=== PATIENT | female | born 1990 | race Caucasian/White ===

== ENCOUNTER 2017-04-08 05:00 | Observation (INO) | payer BC | END 2017-04-08 06:40 | disposition home or self-care (01) | LOC: SPU 05:00 | PROVIDERS: ADMIT Obstetrics & Gynecology; ATTEND Obstetrics & Gynecology | DX: O62.9 Abnormality of forces of labor, unspecified (principal); Z3A.39 39 weeks gestation of pregnancy | CPT/HCPCS: 81002; G0378 ==

== ENCOUNTER 2017-04-09 00:33 | Inpatient (IN) | payer BC ==
[~2017-04-09] VITALS: Ht 165.1 cm; Wt 78.5 kg
[2017-04-09] MEDS ORDERED: LR 1,000 ML IV ONE (01:59)
[2017-04-09] MEDS ORDERED: LR 1,000 ML IV SCH (01:59)
[2017-04-09] MEDS ORDERED: TERBUTALINE SULFATE 1 MG/ML VIAL SUBCUT ONE (02:00)
[2017-04-09] MEDS ORDERED: NALBUPHINE HCL 10 MG/ML AMP IVP PRN (02:00)
[2017-04-09 02:41] LABS: BASOPHILS % (AUTO) 0.3 % (0.0-2.0); EOSINOPHILS # (AUTO) 0.1 K/uL (0.0-0.4); EOSINOPHILS % (AUTO) 0.7 % (0.0-4.0); HEMATOCRIT 38.6 % (36-48); HEMOGLOBIN 13.3 g/dL (12.0-16.0); LYMPHOCYTES % (AUTO) 16.5 % (20.5-51.5); MEAN CORPUSCULAR HEMOGLOBIN 32 pg (27-31); MEAN CORPUSCULAR HGB CONC 34 % (32-36); MEAN CORPUSCULAR VOLUME 93 fL (79.0-98.0); MONOCYTES # (AUTO) 0.9 K/uL (0.0-1.0); MONOCYTES % (AUTO) 7.6 % (1.7-9.3); NEUTROPHILS # (AUTO) 9.3 K/uL (1.8-7.7); NEUTROPHILS % (AUTO) 74.9 % (40.0-70.0); PLATELET COUNT (AUTO) 166 K/uL (130-430); RED BLOOD CELL COUNT(AUTO) 4.17 MIL/uL (4.2-6.2); WHITE BLOOD COUNT (AUTO) 12.3 K/uL (4.8-10.8)
[2017-04-09 04:12] VITALS: BP_SYST 130
[2017-04-09] MEDS ORDERED: OXYTOCIN/NORMAL SALINE 1,000 ML IV SCH ×2 (06:43→19:00)
[2017-04-09] MEDS ORDERED: FENT2mCg/mL-ROPIVA0.2%/NS EPID 150 ML EP ONE (09:44)
[2017-04-09] MEDS ORDERED: LR 500 ML IV ONE (10:58)
[2017-04-09] MEDS ORDERED: FENT2mCg/mL-ROPIVA0.2%/NS EPID 150 ML EP SCH (11:00)
[2017-04-09] MEDS ORDERED: ePHEDrine sulfate 50 MG/ML VIAL IVP PRN (11:00)
[2017-04-09] MEDS ORDERED: LIDOCAINE 2%, 20 ML MDV INJ ONE (15:00)
[2017-04-09] MEDS ORDERED: ACETAMINOPHEN 325 MG TABLET PO PRN (19:00)
[2017-04-09] MEDS ORDERED: GLYCERIN/WITCH HAZEL (TUCKS PADS) TP PRN (19:00)
[2017-04-09] MEDS ORDERED: METHYLERGONOVINE MALEATE 0.2 MG TABLET PO PRN (19:00)
[2017-04-09] MEDS ORDERED: LANOLIN 7 GM OINT. TP PRN (19:00)
[2017-04-09] MEDS ORDERED: HYDROCORTISONE 0.5%, 28.35 GM TOPICAL CREAM TP PRN (19:00)
[2017-04-09] MEDS ORDERED: RHO(D) IMMUNE GLOBULIN/MALTOSE 1500 UNITS/1.3 ML (WINHRO) IM PRN (19:00)
[2017-04-09] MEDS ORDERED: ANUSOL 1 EA SUPP.RECT (PREPARATION H) RC PRN (19:00)
[2017-04-09] MEDS ORDERED: OXYCODONE/ACETAMINOPHEN 5-325 TABLET PO PRN ×2 (19:00)
[2017-04-09] MEDS ORDERED: OXYTOCIN/NORMAL SALINE 1,000 ML IV ONE (19:00)
[2017-04-09] MEDS ORDERED: MEASLES,MUMPS&RUBELLA VACC/PF 12500 UNIT/0.5 ML VIAL SUBQ PRN (19:00)
[2017-04-09] MEDS ORDERED: DOCUSATE SODIUM 100 MG CAPSULE PO PRN (19:00)
[2017-04-09] MEDS ORDERED: SENNOSIDES/DOCUSATE SODIUM 1 TAB TABLET(SENOKOT-S) PO PRN (19:00)
[2017-04-09] MEDS ORDERED: DERMOPLAST SPRAY TP PRN (19:00)
[2017-04-09] MEDS ORDERED: TEMAZEPAM 15 MG CAPSULE PO PRN (21:00)
[2017-04-09] MEDS: IBUPROFEN 600 MG TABLET PO SCH (21:11)
[2017-04-10] MEDS: IBUPROFEN 600 MG TABLET PO SCH ×3 (02:56→17:43)
[2017-04-10 08:56] LABS: HEMATOCRIT 33.5 % (36-48); HEMOGLOBIN 11.3 g/dL (12.0-16.0)
[2017-04-11] MEDS: IBUPROFEN 600 MG TABLET PO SCH ×2 (00:03→06:09)
== END 2017-04-11 10:15 | disposition home or self-care (01) | DRG 775 ==
LOC: SPU 00:33 → OBSVTOIN 00:33
PROVIDERS: ADMIT Obstetrics & Gynecology; ATTEND Obstetrics & Gynecology
PROC: 10E0XZZ Delivery of Products of Conception, External Approach (ICD-10-PCS; principal; 2017-04-09)
PROC: 0KQM0ZZ Repair Perineum Muscle, Open Approach (ICD-10-PCS; 2017-04-09)
PROC: 3E0S3CZ (ICD-10-PCS; 2017-04-09)
PROC: 00HU33Z Insertion of Infusion Device into Spinal Canal, Percutaneous Approach (ICD-10-PCS; 2017-04-09)
DX: O70.1 Second degree perineal laceration during delivery (principal); Z37.0 Single live birth; Z3A.39 39 weeks gestation of pregnancy
CPT/HCPCS: 36415; 81002-TC; 85018-TC; 85025; 86592; 86886; 86900; 86901; J2001; J2300; J3010; J7120

== ENCOUNTER 2020-05-02 15:48 | Outpatient (CLI) | payer BC, SELFPAY | END 2020-05-02 16:00 | disposition home or self-care (01) | LOC: SLB 15:48 | PROVIDERS: ATTEND Specialist | DX: Z11.59 Encounter for screening for other viral diseases (principal) | CPT/HCPCS: C9803; U0003 ==

== ENCOUNTER 2020-05-08 14:25 | Inpatient (IN) | payer BC, SELFPAY ==
[~2020-05-08] VITALS: Ht 165.1 cm; Wt 82.6 kg
[2020-05-08] MEDS ORDERED: LR 1,000 ML IV SCH (22:27)
[2020-05-08] MEDS ORDERED: OXYTOCIN/0.9 % SODIUM CHLORIDE 1,000 ML IV SCH (22:27)
[2020-05-08] MEDS ORDERED: NALOXONE HCL 0.4 MG/ML AMP (NARCAN) IVP PRN (22:30)
[2020-05-08] MEDS ORDERED: DINOPROSTONE 10 MG SUPP VG ONE (22:30)
[2020-05-08] MEDS ORDERED: MORPHINE SULFATE 10 MG/ML VIAL IVP PRN (22:30)
[2020-05-08 23:21] LABS: PLATELET COUNT (AUTO) 173 K/uL (130-430)
[2020-05-08 23:25] LABS: BASOPHILS % (AUTO) 0.2 % (0.0-2.0); EOSINOPHILS # (AUTO) 0.1 K/uL (0.0-0.4); EOSINOPHILS % (AUTO) 1.3 % (0.0-4.0); HEMATOCRIT 38.2 % (36-48); HEMOGLOBIN 13.3 g/dL (12.0-16.0); LYMPHOCYTES # (AUTO) 2.4 K/uL (1.0-5.5); LYMPHOCYTES % (AUTO) 24.2 % (20.5-51.5); MEAN CORPUSCULAR HEMOGLOBIN 32 pg (27-31); MEAN CORPUSCULAR HGB CONC 35 % (32-36); MEAN CORPUSCULAR VOLUME 92 fL (79.0-98.0); MONOCYTES # (AUTO) 0.9 K/uL (0.0-1.0); NEUTROPHILS # (AUTO) 6.5 K/uL (1.8-7.7); NEUTROPHILS % (AUTO) 65.3 % (40.0-70.0); RED BLOOD CELL COUNT(AUTO) 4.16 MIL/uL (4.2-6.2)
[2020-05-08 23:50] VITALS: BP_SYST 131
[2020-05-09] MEDS ORDERED: ROPIVACAINE HCL/PF 0.2% 0 ML ONE (13:56)
[2020-05-09] MEDS ORDERED: fentaNYL CITRATE/PF 100 MCG/2 ML AMP ONE ×2 (13:58→16:01)
[2020-05-09] MEDS ORDERED: ROPIVACAINE HCL/PF 0.2% 200 ML ONE (13:58)
[2020-05-09] MEDS ORDERED: LR 500 ML IV ONE (14:28)
[2020-05-09] MEDS ORDERED: ONDANSETRON HCL 4 MG/2 ML VIAL IVP PRN (14:30)
[2020-05-09] MEDS ORDERED: NALOXONE HCL 0.4 MG/ML AMP (NARCAN) IVP PRN ×2 (14:30→17:45)
[2020-05-09] MEDS ORDERED: FENT2mCg/mL-ROPIVA0.2%/NS EPID 200 ML EP SCH (14:30)
[2020-05-09] MEDS ORDERED: ePHEDrine sulfate 50 MG/ML VIAL IVP PRN (14:30)
[2020-05-09] MEDS ORDERED: MORPHINE SULFATE 10 MG/ML VIAL IVP ONE (16:12)
[2020-05-09] MEDS ORDERED: OXYTOCIN/0.9 % SODIUM CHLORIDE 1,000 ML IV ONE (17:43)
[2020-05-09] MEDS ORDERED: OXYTOCIN/0.9 % SODIUM CHLORIDE 1,000 ML IV SCH (17:43)
[2020-05-09] MEDS ORDERED: DIPH-TET-PERTUS Vaccine 0.5 ML VIAL (ADACEL) I.M. PRN (17:45)
[2020-05-09] MEDS ORDERED: WITCH HAZEL LEAF 1 MED.PAD MED.PAD TP PRN (17:45)
[2020-05-09] MEDS ORDERED: MEASLES,MUMPS&RUBELLA VACC/PF 12500 UNIT/0.5 ML VIAL SUBQ PRN (17:45)
[2020-05-09] MEDS ORDERED: METHYLERGONOVINE MALEATE 0.2 MG TABLET PO PRN (17:45)
[2020-05-09] MEDS ORDERED: RHO(D) IMMUNE GLOBULIN/MALTOSE 1500 UNITS/1.3 ML (WINHRO) IM PRN (17:45)
[2020-05-09] MEDS ORDERED: SENNOSIDES/DOCUSATE SODIUM 1 TAB TABLET(SENOKOT-S) PO PRN (17:45)
[2020-05-09] MEDS ORDERED: ANUSOL 1 EA SUPP.RECT (PREPARATION H) RC PRN (17:45)
[2020-05-09] MEDS ORDERED: DERMOPLAST SPRAY TP PRN (17:45)
[2020-05-09] MEDS ORDERED: HYDROcodone/ACETAMIN 5-325 MG TAB (NORCO/ VICODIN) PO PRN (17:45)
[2020-05-09] MEDS ORDERED: HYDROCORTISONE 0.5%, 28.35 GM TOPICAL CREAM TP PRN (17:45)
[2020-05-09] MEDS ORDERED: OXYCODONE/ACETAMINOPHEN 5-325 TABLET PO PRN ×2 (17:45)
[2020-05-09] MEDS ORDERED: LANOLIN 7 GM OINT. TP PRN (17:45)
[2020-05-09] MEDS ORDERED: IBUPROFEN 600 MG TABLET PO SCH (18:00)
[2020-05-09] MEDS ORDERED: NORMAL SALINE 10 ML VIAL IVP ONE (19:20)
[2020-05-09] MEDS ORDERED: BUPIVACAINE /EPINEPHRINE/PF 0.25% 30 ML VIAL INJ ONE (19:21)
[2020-05-09] MEDS ORDERED: BUPIVACAINE /PF 0.5% 30 ML VIAL INJ ONE (19:22)
[2020-05-09] MEDS ORDERED: TEMAZEPAM 15 MG CAPSULE PO PRN (21:00)
[2020-05-09] MEDS: DOCUSATE SODIUM 100 MG CAPSULE PO PRN (23:26)
[2020-05-09] MEDS: IBUPROFEN 600 MG TABLET PO SCH (23:26)
[2020-05-10] MEDS: IBUPROFEN 600 MG TABLET PO SCH ×3 (05:21→18:14)
[2020-05-10 07:50] LABS: BASOPHILS % (AUTO) 0.1 % (0.0-2.0); EOSINOPHILS # (AUTO) 0.1 K/uL (0.0-0.4); EOSINOPHILS % (AUTO) 0.5 % (0.0-4.0); HEMATOCRIT 28.1 % (36-48); HEMOGLOBIN 9.6 g/dL (12.0-16.0); LYMPHOCYTES # (AUTO) 1.6 K/uL (1.0-5.5); LYMPHOCYTES % (AUTO) 11.5 % (20.5-51.5); MEAN CORPUSCULAR HEMOGLOBIN 32 pg (27-31); MEAN CORPUSCULAR HGB CONC 34 % (32-36); MEAN CORPUSCULAR VOLUME 93 fL (79.0-98.0); MONOCYTES # (AUTO) 1.4 K/uL (0.0-1.0); MONOCYTES % (AUTO) 10.2 % (1.7-9.3); NEUTROPHILS # (AUTO) 10.5 K/uL (1.8-7.7); NEUTROPHILS % (AUTO) 77.7 % (40.0-70.0); PLATELET COUNT (AUTO) 138 K/uL (130-430); RED BLOOD CELL COUNT(AUTO) 3.02 MIL/uL (4.2-6.2); WHITE BLOOD COUNT (AUTO) 13.5 K/uL (4.8-10.8)
[2020-05-11] MEDS: IBUPROFEN 600 MG TABLET PO SCH ×2 (00:03→05:32)
[2020-05-11] MEDS: DOCUSATE SODIUM 100 MG CAPSULE PO PRN (00:04)
== END 2020-05-11 09:43 | disposition home or self-care (01) | DRG 807 ==
LOC: SPU 21:52
PROVIDERS: ADMIT Specialist; ATTEND Specialist
PROC: 10D07Z6 Extraction of Products of Conception, Vacuum, Via Natural or Artificial Opening (ICD-10-PCS; principal; 2020-05-09)
PROC: 0KQM0ZZ Repair Perineum Muscle, Open Approach (ICD-10-PCS; 2020-05-09)
PROC: 3E0P7VZ Introduction of Hormone into Female Reproductive, Via Natural or Artificial Opening (ICD-10-PCS; 2020-05-09)
PROC: 3E0R3BZ Introduction of Anesthetic Agent into Spinal Canal, Percutaneous Approach (ICD-10-PCS; 2020-05-09)
PROC: 00HU33Z Insertion of Infusion Device into Spinal Canal, Percutaneous Approach (ICD-10-PCS; 2020-05-09)
DX: O69.81X0 Labor and delivery complicated by cord around neck, without compression, not applicable or unspecified (principal); Z37.0 Single live birth; Z3A.39 39 weeks gestation of pregnancy; O70.1 Second degree perineal laceration during delivery
CPT/HCPCS: 36415; 81002-TC; 85025; 86592; 86886; 86900; 86901; J2270; J2590; J3010; J3490